=== PATIENT | male | born 1965 | race Caucasian/White ===

== ENCOUNTER 2018-03-28 14:30 | Outpatient (RCR) | payer BC, OTHER, SELFPAY ==
--- NOTE | 2018-03-07 15:34 | HP.PTEVAL ---
Patient's Visit Information DIAMOND JIM is a 53 year old M referred to Physical Therapy by Charissa Pham with a diagnosis of LOW BACK PAIN WITH RIGHT SIDED RADICULOPATHY. Date of Evaluation: 03/07/18 Physical Therapist: Larisa Ramsey - Visit Plan Frequency: 2-3x /Week Duration: 4-6 Weeks Plan: POSTURE CORRECTION/STRENGTHENING, INSTRUCTION IN APPROPRIATE BODY MECHANICS AND ACTIVITY MODIFICATIONS. DLS STARTING WITH A NEUTRAL SPINE PROGRESSING ROM TOLERATED. NATHALIE LE ROM, STRETCHING AND STRENGTHENING. HEP INSTRUCTION. MCKENZIES EXTENSION PRINCIPAL OF TREATMENT INDICATED. 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 I WALK A LOT - MULTIPLE MILES - A DAY AT WORK. Disability: NO. Present symptoms: RIGHT LOW BACK, RIGHT THIGH, RIGHT LEG, AND RIGHT FOOT PAIN AND NUMBNESS. NOTHERING ON THE LEFT. RIGHT FOOT IS NUMB. Present since: 2 MONTHS AGO. Pain Scale: WORST 9/10, LEAST 2/10. Currently: 4/10. Commenced as a result of: NO APPARENT REASON OTHER THAN LEANING AND LIFTING AT WORK. Symptoms at onset: RIGHT BACK AND LE. Worse: WALKING IS THE ABSOLUTE WORSE, CAN'T SLEEP ON RIGHT SIDE, STANDING, SITTING IN A HARD CHAIR, LIFTING, STEPS AND BENDING. Better: SQUATTING, BENDING OVER AT THE WAIST, SITTING IN THE RECLINER. SITTING STYLE. Disturbed sleep: YES. Previous history/Previous treatment: EPISODIC LBP X APPROXIMATELY 19 YEARS AGO. CHIROPRACTOR, STEROIDS, MUSCLE RELAXERS, PAIN PILLS, GABAPENTIN (ON RECENTLY BUT STOPPED TAKING IT THE OTHER DAY). NO BACK SURGERY. NO PRABHU'S. NO PT. Coughing/sneezing/straining: POSITIVE. Gait: VERY DISTANCE LIMITED. LIMPING ON RIGHT LE. SLOWER. DECREASED STRIDE. Difficulty initiating urinatin: NO. Accidents: NO. Unexplained weight loss: NO. Imaging: RECENT LOW BACK X=RAY SHOWING ONE SMALL SPOT OF ARTHRITIS AND 4 VERTEBRAE WITH COMPRESSION INJURIES. NO MRI. PMH: CURRENTLY LEFT THUMB FX. S/P RIGHT ORIF RIGHT FOREARM. LEFT ANKLE FX. MAJOR SURGERY ON JAWS. OTHER: PATIENT REPORTS HIS DOCTOR WANTS AND MRI BUT FOR INSURANCE HE HAS TO DO PHYSICAL THERAPY FIRST. - Objective Sitting/Standing Posture: POOR. Lordosis: REDUCED. Lateral shift: NO. Relevant shift: NO. Active Correction of posture: PERIPHERALIZES SX'S DOWN RIGHT LE TO FOOT. WORSE A RESULT. Other Observations: INDEP GAIT INTO PT WITHOUT ANY ASSISTIVE DEVICES. DECREASED CADANCE, MILD LIMP ON RIGHT LE AND DECREASED NATHALIE STRIDE LENGTH. Motor deficit: NATHALIE LE'S 5/5 WITH MMT'ING EXCEPT NATHALIE HIPS 4/5. Sensory deficit: NATHALIE LE LIGHT TOUCH SENSATION APPEARS TO BE INTACT AND SYMMETRICAL EXCEPT HYPERSENSATIVITY OF RIGHT FOOT COMPARED TO LEFT. ROM deficit: NATHALIE LE'S WFL EXCEPT MILD TIGHTNESS IN HS'S AND GASTROC SOLEUS COMPLEX'S. Reflexes: 2/3 NATHALIE LE'S. Dural Signs: NEGATIVE NATHALIE LE'S. Lumbar mvmt loss: flex - NIL. ext - MOD. R SG - MOD. L SG - MOD. PATIENT DENIES INCREASED PAIN WITH LUMBAR ROM TESTING ALL PLANES HOWEVER HE IS ONLY ABLE TO STAND ABOUT 20 SECONDS BEFORE HE BENDS OVER AT THE WAIST TO GET RELEIF. Core strength: POOR. Palpation: NO ACUTE TENDERNESS WITH PALPATION OF THE LOWER THORACIC, LUMBAR, SACRAL OR PELVIC AREA. OTHER: NEGATIVE NATHALIE LE SLR TESTS. SKTC WITH FULL ROM WITH NO INCREASED PAIN WITH TESTING. UNABLE TO TOLERATE PRONE LYING WITHOUT PERIPHERALIZATION. REP EIL RESULTS IN DECREASED RIGHT LE SX'S AND IMPROVED STANDING TOLERANCE. - Goals Goal 1:: DECREASE C/O LOW BACK AND RIGHT LE SX'S. Goal Time Frame: 4-6 Weeks Goal 2:: IMPROVE PERSONAL CARE, LIFTING, WALKING, SITTING, STANDING, SLEEP, SOCIAL LIFE, TRAVEL AND WORK FUNCTION. Goal Time Frame: 4-6 Weeks Goal 3:: INSTRUCT IN PROPHYLAXIS Goal Time Frame: 4-6 Weeks - Rehabilitation Potential Rehabilitation Potential: Fair - Anticipated Interventions Patient/Client Instruction: Educate patient on: Condition, Plan of Care, Risk Factors, Benefits of Fitness Program For the Purpose of:: To improve self management Therapeutic Exercise to Include: Strength training, Body mechanics, Postural training, Flexibilty training, Gait and locomotor training, Dynamic Lumbar Stabilization For the Purpose of:: To decrease pain, To increase ROM, To improve muscle performance and motor function, To increase tolerance to activity/condition/position, To improve ability of physical actions for home/community/work/leisure, To improve gait and locomotor functions TENS: Yes IF ES: Yes Cryotherapy (ice pack, ice massage): Yes Thermo therapy (hot pack): Yes Ultrasound (thermal/non thermal): Yes For the Purpose of:: To decrease pain, To decrease swelling/inflammation, To improve nutrient delivery to tissue Thank you for the opportunity to evaluate your patient. For Medicare and Medicare HMO plans, please review the plan of care and approve it. It will need to be FAXED BACK to us at [phone] for Medicare purposes. Please let me know if there are questions or concerns regarding this plan of care. Physician Signature: Date:
--- NOTE | 2018-03-28 16:49 | HP.PTDCSUM_ITS ---
HP - PT D/C Summary It has been my pleasure to treat DIAMOND JIM under orders from Charissa Pham , for the diagnosis of LOW BACK PAIN WITH RIGHT SIDED RADICULOPATHY for a total of 7 visit(s). Discharge Date: Please see the following information for a summary of their discharge status. - Subjective Subjective: PATIENT REPORTS HE IS STILL HAVING THE SAME SYMPTOMS. JUST CAME FROM WORK. YESTERDAY WAS BAD AND TODAY IS WORSE. STATES ONLY ABLE TO GET TEMPORARY RELEIF WITH TRUNK FLEX AND HEP YESTERDAY AND TODAY. - Pain LOW BACK Pain Intensity (Out of 10): 7 RIGHT LE Pain Intensity (Out of 10): 8 - Overall Improvement % Improvement: 75 - Objective Objective/Function: PATIENT HAS RECENTLY WORSENED AGAIN. PATIENT UNABLE TO STAND UP STRAIGHT FOR MORE THAN A FEW SECONDS AT A TIME. WAS ABLE TO WALK BACK TO PT INDEP'LY X APPROX 300 FEET BUT GAIT IS ANTALGIC AND PATIENT BENDS OVER AT THE WAIST SOON HE ARRIVES TO THE ROOM. FOUND IN FULL FLEXION SITTING IN LOBBY. Motor deficit: NATHALIE LE'S 5/5 WITH MMT'ING EXCEPT NATHALIE HIPS 4/5. Sensory deficit: NATHALIE LE LIGHT TOUCH SENSATION APPEARS TO BE INTACT AND SYMMETRICAL EXCEPT HYPERSENSATIVITY OF RIGHT FOOT AND LEG COMPARED TO LEFT. ROM deficit: NATHALIE LE'S WFL EXCEPT MILD TIGHTNESS IN HS'S AND GASTROC SOLEUS COMPLEX'S R > L. Dural Signs: NEGATIVE NATHALIE LE'S. Lumbar mvmt loss: flex - NIL. ext - JAMEL. R SG - JAMEL. L SG - MOD. PATIENT C/O PAIN WITH RIGHT SG TESTING AND RETURN FROM FLEX IN STANDING. LUMBAR EXT ROM TESTING ALSO INCREASED PAIN. HE IS ONLY ABLE TO STAND ABOUT 15 SECONDS BEFORE HE BENDS OVER AT THE WAIST TO GET RELEIF. Core strength: POOR. Palpation: NO ACUTE TENDERNESS WITH PALPATION OF THE LOWER THORACIC, LUMBAR, SACRAL OR PELVIC AREA EXCEPT MILDLY IN RIGHT SI/BUTTOCK REGION. OTHER: NEGATIVE NATHALIE LE SLR TESTS. SKTC WITH FULL ROM WITH NO INCREASED PAIN WITH TESTING. LUMBAR OSWESTRY SCORE HAS WORSENED FROM 26 TO 32. NO RELIEF WITH POSITIONING OR E-STIM TODAY. DIFFICULTY EVEN GETTING COMFORTABLE FOR E-STIM. - Goals Goal 1:: DECREASE C/O LOW BACK AND RIGHT LE SX'S. Goal Progress: Not Progressing Goal 2:: IMPROVE PERSONAL CARE, LIFTING, WALKING, SITTING, STANDING, SLEEP, SOCIAL LIFE, TRAVEL AND WORK FUNCTION. Goal Progress: Not Progressing Goal 3:: INSTRUCT IN PROPHYLAXIS Goal Progress: Not Progressing - Plan Plan: D/C DUE TO WORSENING. RECOMMEND PHYSICIAN RE-ASSESSMENT. PATIENT AGREEABLE. - D/C Information If there are questions or concerns regarding this patient's physical therapy, please feel free to call me at [phone]. Thank you for the referral of this patient. Sincerely, Larisa Ramsey
== END 2018-03-28 19:00 | disposition home or self-care (01) ==
LOC: PT 14:30
PROVIDERS: Family Provider Family Medicine; PCP Family Medicine; Visit Provider Family Medicine
DX: M54.5 Low back pain (principal); M54.16 Radiculopathy, lumbar region
CPT/HCPCS: 97014; 97035; 97110; 97162; 97164; 97530; G0283

== ENCOUNTER → 2020-01-06 13:54 | Outpatient (CLI) | payer BC, OTHER, SELFPAY ==
[2020-01-06 13:45] VITALS: BMI 22.7
--- NOTE | 2020-01-06 14:00 | RAD_ITS ---
STUDY: X-RAY - LEFT WRIST REASON FOR EXAM: Male, 54 years old. Fall 3 days ago, swelling in hand and wrist TECHNIQUE: Pain and swelling view(s) of the wrist were obtained. COMPARISON: None. FINDINGS: On only the lateral view, there are calcific fragments noted dorsal to the capitate which may represent subtle fractures as there is associated lucency in the dorsal capitate seen only on the lateral view. There is associated soft tissue swelling. No other demonstrated carpal abnormality. No significant arthrosis. Normal visualized distal radius and ulna. Normal radiocarpal articulation. Normal distal radioulnar articulation.. Normal carpal articulations. Normal carpometacarpal articulation of the thumb. Normal second through fifth carpometacarpal articulations. Normal visualized metacarpal bones. The soft tissue structures are unremarkable. RAD/Wrist min 3 Views IMPRESSION: Avulsion fracture of the dorsal capitate suggested on only the lateral film. There is associated soft tissue swelling in this region. Joint spaces well-preserved Electronically Signed: Kota Servin MD at 14:49 EDT , Service support ,
--- NOTE | 2020-01-06 14:00 | RAD_ITS ---
STUDY: X-RAY - LEFT HAND REASON FOR EXAM: Male, 54 years old. Fell 3 days ago, swelling and pain in hand and wrist TECHNIQUE: 3 view(s) of the hand. COMPARISON: None. FINDINGS: Normal radiocarpal articulation. Normal distal radioulnar joint. Again noted only on the lateral view is a subtle lucency in the dorsal capitate with associated osseous fragments and soft tissue swelling to suspect an avulsion fracture of the dorsal capitate. Again this is seen only on the lateral film. No other evidence to suspect carpal fracture. Normal carpal articulations Normal carpometacarpal articulation of the thumb. Normal second through fifth carpometacarpal joints. Normal metacarpi. Normal metacarpophalangeal joint of the thumb. Normal interphalangeal joint of the thumb. Normal proximal and distal phalanges of the thumb. Normal metacarpophalangeal joints of the second through fifth fingers. Normal proximal and distal interphalangeal joints of the second through fifth fingers. Normal phalanges of the second through fifth fingers. There is a foreign body projecting between the first and second metacarpals. RAD/Hand Min 3 Views IMPRESSION: Again seen only on the lateral film is a suspected avulsion fracture involving the dorsal capitate. There is associated soft tissue swelling No demonstrated fracture within the hand. Foreign body noted between the first and second metacarpals Electronically Signed: Kota Servin MD at 14:51 EDT , Service support ,
== END ==
PROVIDERS: PCP Family Medicine; Referring Provider Physician Assistant Surgical; Visit Provider Physician Assistant Surgical
DX: S66.912A Strain of unspecified muscle, fascia and tendon at wrist and hand level, left hand, initial encounter (principal)
CPT/HCPCS: 73110; 73130

== ENCOUNTER 2020-09-29 15:18 | Outpatient (RCR) | payer BC, SELFPAY ==
[2020-01-06 13:45] VITALS: BMI 22.7
[2020-09-29] MEDS: COVID-19 VACC, MRNA(PFIZER)/PF 30 MCG/0.3 ML SYRINGE IM (15:31)
[2020-10-20] MEDS: COVID-19 VACC, MRNA(PFIZER)/PF 30 MCG/0.3 ML SYRINGE IM (15:29)
== END 2020-12-22 23:59 ==
LOC: IMMUN 15:18
PROVIDERS: PCP Family Medicine; Visit Provider Family Medicine
DX: Z23 Encounter for immunization (principal)
CPT/HCPCS: 0001A; 0002A; 91300